=== PATIENT | female | born 1975 | race Caucasian/White ===

== ENCOUNTER 2017-07-22 10:17 | Emergency (ER) | payer OTHER ==
[~2017-07-22] VITALS: Ht 175.3 cm; Wt 97.0 kg
[~2017-07-22 10:17] MED LIST: AUGM875T PO; NOVONP2; ROBIACUDC PO
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
[2017-07-22] MEDS ORDERED: SODIUM CHLORID 0.9% 500 ML INJ 500 ML IV ONE (10:45)
[2017-07-22] MEDS ORDERED: ACETAMINOPHEN 325 MG TAB PO ONE (10:45)
[2017-07-22 10:47] VITALS: BP 138/73; PULSE 88; RESP 20; TEMP 98.1; O2SAT 99
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
[2017-07-22] MEDS ORDERED: NOVORP2 SQ (12:17)
[2017-07-22] MEDS ORDERED: NOVONP2 SQ (12:17)
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
== END 2017-07-22 15:26 | disposition home or self-care (01) ==
LOC: NEPD 10:17
DX: S82.142A Displaced bicondylar fracture of left tibia, initial encounter for closed fracture (principal); E11.9 Type 2 diabetes mellitus without complications; J45.909 Unspecified asthma, uncomplicated; V28.4XXA Motorcycle driver injured in noncollision transport accident in traffic accident, initial encounter; Z88.5 Allergy status to narcotic agent; Z79.4 Long term (current) use of insulin; Z79.899 Other long term (current) drug therapy
CPT/HCPCS: 73030; 73564; 73610; 73700; 96360; 99285; E0113; J7040; L1830